=== PATIENT | female | born 1975 | race African-American/Black ===

== ENCOUNTER 2018-02-24 03:26 | Emergency (ER) | payer OTHER ==
[~2018-02-24] VITALS: Ht 167.6 cm; Wt 94.3 kg
--- NOTE | ~2018-02-24 | EKG ---
[place] [address] [facility] [place] [address] ELECTROCARDIOGRAM REPORT Name: LUCAS CONSTANTINO Room #: DEP CARLEEN Griffin#: [id number] Admission: 02/24/18 Attend Phys: Discharge: 02/24/18 Date of : 71 Report #: [id number] THIS REPORT FOR: //name// [facility] ED Test Date: 2018-02-24 Test Time: 03:55:54 Pat Name: LUCAS CONSTANTINO Department: Room: Gender: F Churn Operator: jlambtelly : 1975 Requested By: Greg Lewis Order Number: [id number] MD: Reagan Monsalve Measurements Intervals [place] Rate: 103 P: 60 MN: 154 QRS: 22 QRSD: 75 T: 15 QT: 364 QTc: 477 Interpretive Statements Sinus tachycardia Otherwise no significant abnormality No previous ECG available for comparison Electronically Signed On 02-24-2018 10:57:46 CDT by Reagan Monsalve [email or web address] <ELECTRONICALLY SIGNED> By: Reagan Monsalve MD, [facility] 02/24/18 [id number] Reagan Monsalve MD, FACC /EPI
[~2018-02-24 03:26] MED LIST: BCP; XANAX 0.5 MG0.5 M1 PO
[2018-02-24 04:04] LABS: HEMATOCRIT 36.3 % (37.0-47.0); HEMOGLOBIN 12.2 gm/dL (12.0-15.0); LYMPHOCYTES 41.1 % (24.0-44.0); MCH 32.1 pg (26.0-34.0); MCHC 33.5 g/dL (28.0-37.0); MCV 95.7 fL (80.0-100.0); MONOCYTES 4.9 % (1.0-8.0); PLATELET COUNT 259 thou/uL (150-400); RBC 3.79 mil/uL (4.20-5.00); RDW 19.9 % (10.5-14.5); WBC 7.9 thou/uL (4.0-11.0)
[2018-02-24 04:15] LABS: CALCIUM 8.7 mg/dL (8.5-10.1); CREATININE 0.5 mg/dL (0.6-1.0); POTASSIUM 4.5 mmol/L (3.5-5.1)
[2018-02-24 04:20] LABS: ALBUMIN 3.5 g/dL (3.4-5.0); TOTAL BILIRUBIN 0.4 mg/dL (<0.1-1.0); TOTAL PROTEIN 7.7 g/dL (6.4-8.2)
[2018-02-24] MEDS ORDERED: KEPPRA XR500 MG PO (05:28)
[2018-02-24 05:49] VITALS: BP 157/90
== END 2018-02-24 06:12 | disposition home or self-care (01) ==
LOC: ER 03:26
PROVIDERS: Emergency Medicine
DX: R60.0 Localized edema (principal); F20.9 Schizophrenia, unspecified; Z90.10 Acquired absence of unspecified breast and nipple; Z98.890 Other specified postprocedural states